=== PATIENT | female | born 1965 | race African-American/Black ===

== ENCOUNTER 2018-07-13 15:46 | Outpatient (CLI) | payer OTHER ==
--- NOTE | 2018-07-13 17:27 | Diagnostic Imaging Report ---
STACEY MACEDO [facility] [address] [facility] [address] [address] Report Submission Date: Jul 13, 2018 4:18:14 PM [employer]OLDER Patient Study Name: DANO DYE Date: Jul 13, 2018 3:50:21 PM [employer]DER Modality Type: DX Gender: F Description: CHEST : 63 Institution: [facility] Physician: STACEY MACEDO Examination: PA and lateral chest. History: Evaluate lung alves. positive TB test, Comparison exam: None provided. Findings: PA and lateral views of the chest demonstrates a normal cardiac and mediastinal silhouette. No focal infiltrate. apical lung alves without irregularity. No blunting of the costophrenic margins. Osseous structures are appropriate for age. Impression: No acute pulmonary process. No evidence for active tuberculosis by plain film sensitivity. Electronically signed on Jul 13, 2018 4:18:14 PM SPECIALTY MOLDER by: Jeffrey JOHNSON
== END 2018-07-13 15:48 ==
LOC: RAD 15:46
PROVIDERS: ATTEND Family Medicine
DX: R76.11 Nonspecific reaction to tuberculin skin test without active tuberculosis (principal)
CPT/HCPCS: 71046